=== PATIENT | female | born 1975 | race Caucasian/White ===

== ENCOUNTER 2021-11-06 06:40 | Emergency (ER) | payer BC, OTHER ==
[2021-11-06 06:53] VITALS: BP 104/63; PULSE 65; TEMP 97.4; BMI 31.1
== END 2021-11-06 07:30 | disposition home or self-care (01) ==
LOC: JER 06:40
DX: R05.9 Cough, unspecified (principal); Z20.822 Contact with and (suspected) exposure to COVID-19
CPT/HCPCS: 99283-25; C9803; U0003; U0005